=== PATIENT | female | born 1960 | race Caucasian/White ===

== ENCOUNTER 2022-10-01 12:20 | Emergency (ER) | payer OTHER ==
[~2022-10-01] VITALS: Ht 167.6 cm; Wt 61.2 kg
[2022-10-01] MEDS ORDERED: LIDOCAINE 5% PATCH TD ONE ×2 (12:41→12:45)
[2022-10-01] MEDS ORDERED: KETOROLAC TROMETHAMINE 15 MG INJ ONE (12:42)
[2022-10-01] MEDS ORDERED: KETOROLAC TROMETHAMINE 15 MG INJ IVP ONE (12:45)
[2022-10-01 12:55] LABS: HEMATOCRIT 37.4 % (31.2-41.9); MEAN CORPUSCULAR HEMOGLOBIN 32.5 uug (24.7-32.8); MEAN CORPUSCULAR VOLUME 95.2 fL (75.5-95.3); PLATELET COUNT (AUTO) 308 K/uL (179-408)
[2022-10-01 13:10] LABS: *BILIRUBIN,URIN NEGATIVE (NEGATIVE); *CLARITY,URINE CLEAR (CLEAR); *COLOR,URINE YELLOW (YELLOW); *KETONES,URINE NEGATIVE (NEGATIVE); *UROBILINOGEN,URINE 0.2 E.U./dl (NORMAL); LEUKOCYTE ESTERASE ,URINE 1+ (NEGATIVE); NITRITE, URINE POSITIVE (NEGATIVE); UGLUCOSE NEGATIVE (NEGATIVE)
[2022-10-01 13:15] LABS: BILIRUBIN,TOTAL 0.5 mg/dL (0.2-1.0); CREATININE 0.8 mg/dL (0.6-1.3); POTASSIUM 3.9 mmol/L (3.5-5.1); TOTAL PROTEIN, SERUM 7.8 g/dL (6.4-8.2)
[2022-10-01 13:26] LABS: *BLOOD, URINE TRACE (NEGATIVE)
[2022-10-01 14:29] LABS: BACTERIA,URINE MANY /HPF (NONE SEEN); RBC,URINE 0-3 /HPF (0-3)
[2022-10-01 14:30] LABS: CALCIUM CARBONATE CRYSTALS,UR NONE SEEN /HPF (NONE SEEN); CALCIUM OXALATE CRYSTALS,UR NONE SEEN /HPF (NONE SEEN); CALCIUM PHOSPHATE CRYSTALS,UR NONE SEEN /HPF (NONE SEEN); COARSE GRANULAR CASTS,URINE NONE SEEN /LPF; CYSTINE CRYSTALS,URINE NONE SEEN /HPF (NONE SEEN); FATTY CASTS,URINE NONE SEEN /LPF (NONE SEEN); MUCUS,URINE NONE SEEN /LPF (0-FEW); RED BLOOD CELL CASTS,URINE NONE SEEN /LPF (NONE SEEN); SPERM,URINE NONE SEEN /HPF (NONE SEEN); SQUAMOUS EPITHELIAL CELL,UR FEW /HPF (NONE SEEN); TRICHOMONAS,URINE NONE SEEN /HPF (NONE SEEN); TRIPLE PHOSPHATE CRYSTAL,UR NONE SEEN /HPF (NONE SEEN); TYROSINE CRYSTAL,URINE NONE SEEN /HPF (NONE SEEN); URIC ACID CRYSTALS,URINE NONE SEEN /HPF (NONE SEEN); URINE AMORPHOUS PHOSPHATES NONE SEEN /HPF; URINE AMORPHOUS URATE NONE SEEN /HPF; WAXY CASTS,URINE NONE SEEN /LPF (NONE SEEN); YEAST,URINE NONE SEEN /HPF (NONE SEEN)
[2022-10-01] MEDS ORDERED: NITR-84 PO (14:43)
[2022-10-01] MEDS ORDERED: HYDR-4676 PO (14:43)
--- NOTE | 2022-10-01 15:01 | NUR ---
Patient discharged to home in stable condition. Written and verbal after care instructions given. Patient verbalizes understanding of instructions. Stressed follow up or return to ER for worsening s/s.
[2022-10-01 15:19] VITALS: BP 122/70
[2022-10-01] MEDS ORDERED: HYDR-3980 PO (15:43)
== END 2022-10-01 15:20 | disposition home or self-care (01) ==
LOC: ER 12:30
DX: M54.50 Low back pain, unspecified (principal); N39.0 Urinary tract infection, site not specified; Z79.899 Other long term (current) drug therapy
CPT/HCPCS: 99283; 96374; 80053; 81001; 85025; 36415; 87040; J1885; A4663

== ENCOUNTER 2022-10-27 15:52 | Emergency (ER) | payer OTHER ==
[~2022-10-27] VITALS: Ht 167.6 cm; Wt 61.7 kg
[~2022-10-27 15:52] MED LIST: HYDR-3980 PO; NITR-84 PO
--- NOTE | 2022-10-27 16:05 | NUR ---
PT IS IN ROOM #2B. DR GARCIA EVALUATED THE PT.
[2022-10-27] MEDS ORDERED: KETOROLAC TROMETHAMINE 15 MG INJ IVP ONE (16:45)
[2022-10-27] MEDS ORDERED: IV NORMAL SALINE 500 ML BAG IV ONE (16:45)
[2022-10-27] MEDS ORDERED: KETOROLAC TROMETHAMINE 15 MG INJ ONE (17:10)
[2022-10-27 17:14] LABS: *BILIRUBIN,URIN NEGATIVE (NEGATIVE); *CLARITY,URINE CLOUDY (CLEAR); *COLOR,URINE YELLOW (YELLOW); *KETONES,URINE NEGATIVE (NEGATIVE); *UROBILINOGEN,URINE 0.2 E.U./dl (NORMAL); LEUKOCYTE ESTERASE ,URINE 3+ (NEGATIVE); NITRITE, URINE POSITIVE (NEGATIVE); UGLUCOSE NEGATIVE (NEGATIVE)
[2022-10-27 17:19] LABS: *BLOOD, URINE TRACE (NEGATIVE)
[2022-10-27 17:55] LABS: BACTERIA,URINE MANY /HPF (NONE SEEN); SQUAMOUS EPITHELIAL CELL,UR FEW /HPF (NONE SEEN); WBC,URINE TNTC /HPF (0-3)
[2022-10-27] MEDS ORDERED: CEFTRIAXONE /D5W 50ML IVPB **ER PYXIS IV ONE (18:07)
[2022-10-27] MEDS ORDERED: NITR-84 PO (18:07)
[2022-10-27] MEDS ORDERED: CEFU500T66 PO (18:07)
[2022-10-27] MEDS ORDERED: NAPR-1192 PO (18:09)
[2022-10-27] MEDS ORDERED: CYCL5TAB PO (18:11)
[2022-10-27] MEDS ORDERED: CEFTRIAXONE 1 G in IV DEXTROSE 5% 50 ML IV ONE (18:15)
--- NOTE | 2022-10-27 18:41 | NUR ---
PT WAS D/C'd TO HOME. D/C INSTRUCTIONS GIVEN TO THE PT BY DR GARCIA.
[2022-10-27 18:47] VITALS: BP 129/77
== END 2022-10-27 18:48 | disposition home or self-care (01) ==
LOC: ER 15:52
DX: N39.0 Urinary tract infection, site not specified (principal); Z79.899 Other long term (current) drug therapy
CPT/HCPCS: 99284; 96365; 96361; 96375; 81001; 87040; J0696; J1885; J7040; A4663

== ENCOUNTER 2023-12-13 15:08 | Emergency (ER) | payer OTHER ==
[~2023-12-13] VITALS: Ht 167.6 cm; Wt 63.5 kg
[~2023-12-13 15:08] MED LIST changes: +CEFU500T66 PO; +CYCL5TAB PO; +NAPR-1192 PO; -NITR-84 PO
[2023-12-13] MEDS ORDERED: IBUP-1955 PO (16:30)
[2023-12-13] MEDS ORDERED: HYDR-4209 PO (16:30)
[2023-12-13] MEDS ORDERED: CYCL5TAB PO (16:30)
[2023-12-13] MEDS ORDERED: KETOROLAC TROMETHAMINE 15 MG INJ ONE (16:33)
[2023-12-13] MEDS: KETOROLAC TROMETHAMINE 15 MG INJ IM ONE (16:37)
[2023-12-13 16:45] VITALS: BP 110/69; O2SAT 98
== END 2023-12-13 16:43 | disposition home or self-care (01) ==
LOC: ER 15:09
DX: S20.211A Contusion of right front wall of thorax, initial encounter (principal); F32.A Depression, unspecified; Z79.899 Other long term (current) drug therapy; Z79.891 Long term (current) use of opiate analgesic; X50.0XXA Overexertion from strenuous movement or load, initial encounter; Y93.89 Activity, other specified; Y92.89 Other specified places as the place of occurrence of the external cause; Y99.8 Other external cause status
CPT/HCPCS: 99283; 71101; 96372; J1885; A4606; A4663